=== PATIENT | male | born 1990 | race African-American/Black ===

== ENCOUNTER 2019-09-15 13:50 | Emergency (ER) | payer OTHER ==
[~2019-09-15] VITALS: Ht 175.3 cm; Wt 100.8 kg
[2019-09-15] MEDS ORDERED: MELO15TA28 PO (14:02)
--- NOTE | 2019-09-15 16:43 | REP ---
Lumbar spine five views: Vertebral body heights, interspacing alignment are normal. There is no spondylolysis. There is no spondylolisthesis. The pedicles and facets are unremarkable. Sacroiliac articulations are unremarkable. Impression: Negative lumbar spine. Electronically Signed by Dirk Herndon MD 09/15/2019 04:35 P
[2019-09-15 16:50] VITALS: BP 136/78
== END 2019-09-15 17:08 | disposition home or self-care (01) ==
LOC: M ED 13:50
DX: G89.29 Other chronic pain (principal); M54.5 Low back pain; Z79.899 Other long term (current) drug therapy